=== PATIENT | male | born 1960 | race Caucasian/White ===

== ENCOUNTER 2019-12-13 12:07 | Inpatient (IN) ==
[~2019-12-13 12:07] MED LIST: *HR* HYDROmorphone 2 MG TABLET PO PRN; *HR* HYDROmorphone PF 0.5 MG/0.5 ML SYRINGE IVP PRN; *HR* Labetalol 20 MG/4 ML SYRINGE IVP PRN; *HR* OxyCODONE Immed Rel 5 MG TABLET PO PRN; Acetaminophen IV 1,000 MG/100 ML INFUS..BTL IVPB ONE; Famotidine 20 MG/2 ML VIAL IVP ONE; Pregabalin 75 MG CAPSULE PO ONE; Promethazine 6.25 MG in Water for inj. (sterile) 20 ML IVPB PRN
[2019-12-13] MEDS ORDERED: CeFAZolin Syr 2,000MG/20 ML 2,000 MG/20 ML SYRINGE IVPB ONE (12:46)
[2019-12-13] MEDS ORDERED: Ringers Solution, Lactated 1,000 ML IVC SCH (13:00)
[2019-12-13] MEDS ORDERED: Lidocaine HCL 4 ML Topical Solution (Laryng-O-Jet Kit Sterile Pak) TP ONE ×2 (13:10→13:47)
[2019-12-13] MEDS ORDERED: Ondansetron 4 MG/2 ML VIAL ONE ×3 (13:14→19:52)
[2019-12-13] MEDS ORDERED: Lidocaine -MPF 2% 2 ML VIAL ONE ×2 (13:14→13:46)
[2019-12-13] MEDS ORDERED: *HR* Rocuronium Bromide 50 MG/5 ML VIAL ONE ×2 (13:14→13:46)
[2019-12-13] MEDS ORDERED: Dexamethasone 4 MG/ML VIAL ONE ×2 (13:14→13:46)
[2019-12-13] MEDS ORDERED: *HR* Propofol 200 MG/20 ML VIAL IVP ONE ×2 (13:17→13:47)
[2019-12-13] MEDS ORDERED: *HR* HYDROMORPHONE 2 MG/ML VIAL ONE ×2 (13:24→19:52)
[2019-12-13] MEDS ORDERED: ceFAZolin 1,000 MG, Sodium Chloride IRRigation 1,000 ML IR ONE (13:30)
[2019-12-13 13:31] LABS: Adenovirus Not Detected (Not Detect); Bordetella Pertussis Not Detected (Not Detect); Chlamydophila pneumoniae Not Detected (Not Detect); Coronavirus 229E Not Detected (Not Detect); Coronavirus HKU1 Not Detected (Not Detect); Coronavirus NL63 Not Detected (Not Detect); Coronavirus OC43 Not Detected (Not Detect); Human Metapneumovirus Not Detected (Not Detect); Human Rhinovirus/Enterovirus Not Detected (Not Detect); Influenza A Subtype 2009 H1 Not Detected (Not Detect); Influenza B Not Detected (Not Detect); Mycoplasma pneumoniae Not Detected (Not Detect); Parainfluenza Virus 1 Not Detected (Not Detect); Parainfluenza Virus 2 Not Detected (Not Detect); Parainfluenza Virus 3 Not Detected (Not Detect); Parainfluenza Virus 4 Not Detected (Not Detect); Respiratory Syncytial Virus Not Detected (Not Detect); SARS-CoV-2 Not Detected (Not Detect)
[2019-12-13] MEDS ORDERED: EPHEDrine 50 MG/ML VIAL ONE ×2 (13:35→18:06)
[2019-12-13] MEDS ORDERED: *HR* FentaNYL (PF) 100 MCG/2 ML VIAL ONE (13:46)
[2019-12-13] MEDS ORDERED: *HR* Midazolam HCl 2 MG/2 ML VIAL ONE (13:46)
[2019-12-13] MEDS ORDERED: Heparin 1,000 UNITS/500 mL 1,500 ML ONE (13:51)
[2019-12-13] MEDS ORDERED: Albuterol 2.5 MG/3 ML NEBULIZER ONE (13:52)
[2019-12-13] MEDS ORDERED: Heparin 1,000 UNITS/500 mL 500 ML ONE (14:18)
[2019-12-13] MEDS ORDERED: Lidocaine Jelly 6ml 1 APPL/6 ML JEL.PF.APP ONE (14:19)
[2019-12-13] MEDS ORDERED: Lidocaine OINT 35.44 GM TUBE TP ONE (14:23)
[2019-12-13] MEDS ORDERED: Lidocaine TOPICAL Soln 50 ML BOTTLE ONE (14:23)
[2019-12-13] MEDS ORDERED: Dexmedetomidine HCl 400 MCG/100 ML MLS IVC ONE (14:37)
[2019-12-13] MEDS ORDERED: CloNIDine Patch 0.1 MG PATCH (WEEKLY) ONE (15:23)
[2019-12-13] MEDS ORDERED: Ondansetron 4 MG/2 ML VIAL IVP PRN ×2 (20:51→21:27)
[2019-12-13] MEDS ORDERED: Dexamethasone 4 MG/ML VIAL IVP PRN (20:51)
[2019-12-13] MEDS ORDERED: *HR* OxyCODONE/APAP 10/325 TABLET PO PRN (21:27)
[2019-12-13] MEDS ORDERED: Acetaminophen 325 MG TABLET PO PRN (21:27)
[2019-12-13] MEDS ORDERED: Naloxone 0.4 MG/ML INJ IVP PRN (21:27)
[2019-12-13] MEDS: Gabapentin 400 MG CAPSULE PO SCH (22:08)
[2019-12-13] MEDS: carvediloL 25 MG TABLET PO SCH (22:09)
[2019-12-13] MEDS: cloNIDine HCL 0.1 MG TABLET PO SCH (22:09)
[2019-12-13] MEDS: *HR* OxyCODONE Immed Rel 5 MG TABLET PO PRN (22:09)
[2019-12-13] MEDS: CeFAZolin 2 GM/120 ML BAG IVPB SCH (23:10)
[2019-12-14 04:37] LABS: Basophils % 0.1 %; Hematocrit 36.7 % (37.5-50.1); Immature Granulocytes % 0.8 % (0-4); Lymphocytes % 8.2 %; Mean Corpuscular HGB Conc 32.2 g/dL (31.6-35.5); Mean Corpuscular Hemoglobin 27.4 pg (28.0-33.3); Mean Corpuscular Volume 85.3 fL (83.0-100.0); Mean Platelet Volume 9.5 fL (9.4-12.4); Monocytes # 0.5 K/mcL (0.0-1.3); Neutrophils # 10.3 K/mcL (1.6-8.9); Platelet Count 202 K/mcL (140-400); Red Cell Distribution Width 15.2 % (11.5-14.5); Segmented Neutrophils % 86.9 %; White Blood Count 11.9 K/mcL (4.3-11.1)
[2019-12-14 04:42] LABS: Hemoglobin 11.8 g/dL (12.9-16.9)
[2019-12-14] MEDS: *HR* OxyCODONE Immed Rel 5 MG TABLET PO PRN ×3 (04:49→16:58)
[2019-12-14 04:56] LABS: BUN/Creatinine Ratio 19 (6-26); Blood Urea Nitrogen 13 mg/dL (6-20); Calcium 7.9 mg/dL (8.6-10.3); Carbon Dioxide 18 mEq/L (23-29); Chloride 94 mEq/L (98-107); Glucose 190 mg/dL (70-105); Osmolality,Calculated 273 (280-300); Potassium 4.4 mEq/L (3.5-5.1); Sodium 129 mEq/L (136-145); eGFR For African Americans > 60 (> 60); eGFR For Non-African Americans > 60 (> 60)
[2019-12-14] MEDS ORDERED: hydroCHLOROthiazide 25 MG TABLET PO SCH (09:00)
[2019-12-14] MEDS ORDERED: XULTOPHY SQ SCH (09:00)
[2019-12-14] MEDS ORDERED: Empagliflozin [Jardiance] 25 MG PO SCH (09:00)
[2019-12-14] MEDS ORDERED: Aspirin Enteric Coated 81 MG Tablet PO SCH (09:00)
[2019-12-14] MEDS: Gabapentin 400 MG CAPSULE PO SCH ×3 (09:26→20:30)
[2019-12-14] MEDS: *HR* Metformin 500 MG TABLET PO SCH ×2 (09:26→16:58)
[2019-12-14] MEDS: cloNIDine HCL 0.1 MG TABLET PO SCH ×2 (09:26→20:30)
[2019-12-14] MEDS: carvediloL 25 MG TABLET PO SCH ×2 (09:26→16:58)
[2019-12-14] MEDS: CeFAZolin 2 GM/120 ML BAG IVPB SCH ×2 (09:27→16:58)
[2019-12-14 20:13] VITALS: BP 110/58
[2019-12-15] MEDS ORDERED: Insulin DETEMIR 100 UNIT/ML X5UNITS SQ SCH (09:00)
== END 2019-12-14 20:54 | disposition home or self-care (01) | DRG 272 ==
LOC: SAMDAY 12:07 → 2NNU 21:25
PROVIDERS: ADMIT Surgery Vascular Surgery; ATTEND Surgery Vascular Surgery